=== PATIENT | male | born 1980 | race Caucasian/White ===

== ENCOUNTER 2024-03-17 16:43 | Outpatient (CLI) | payer OTHER | END 2024-03-17 16:44 | disposition home or self-care (01) | LOC: CSHRAD 16:43 | PROVIDERS: ATTEND Nurse Practitioner Primary Care | DX: R05.9 Cough, unspecified (principal); R50.9 Fever, unspecified; R06.02 Shortness of breath | CPT/HCPCS: 71046 ==